=== PATIENT | female | born 1960 | race Two or more races ===

== ENCOUNTER 2020-04-25 06:05 | Day surgery (SDC) | payer OTHER | END 2020-04-25 11:45 | disposition home or self-care (01) | LOC: AMB-ENDOS 06:05 | PROVIDERS: ATTEND Surgery | DX: D12.8 Benign neoplasm of rectum (principal); K64.4 Residual hemorrhoidal skin tags; Z20.828 Contact with and (suspected) exposure to other viral communicable diseases ==